=== PATIENT | female | born 1945 | race Hispanic/Latino ===

== ENCOUNTER → 2017-12-03 | Outpatient (CLI) | payer OTHER | END | disposition home or self-care (01) | LOC: RAH 11:16 | PROVIDERS: ATTEND Family Medicine | DX: Z12.31 Encounter for screening mammogram for malignant neoplasm of breast (principal) | CPT/HCPCS: 77067 ==

== ENCOUNTER → 2018-05-14 | Outpatient (CLI) | payer OTHER | END | disposition home or self-care (01) | LOC: RAH 09:45 | PROVIDERS: ATTEND Family Medicine | DX: R92.8 Other abnormal and inconclusive findings on diagnostic imaging of breast (principal) | CPT/HCPCS: 77065 ==

== ENCOUNTER → 2018-12-04 | Outpatient (CLI) | payer OTHER | END | disposition home or self-care (01) | LOC: RAH 09:58 | PROVIDERS: ATTEND Family Medicine | DX: Z12.31 Encounter for screening mammogram for malignant neoplasm of breast (principal) | CPT/HCPCS: 77067 ==

== ENCOUNTER → 2020-09-04 | Outpatient (CLI) | payer OTHER | END | disposition home or self-care (01) | LOC: RAH 14:56 | PROVIDERS: ATTEND Family Medicine | DX: Z12.31 Encounter for screening mammogram for malignant neoplasm of breast (principal) | CPT/HCPCS: 77067 ==

== ENCOUNTER → 2022-01-07 | Outpatient (CLI) | payer OTHER | END | disposition home or self-care (01) | LOC: RAH 14:55 | PROVIDERS: ATTEND Physician Assistant Medical | DX: Z12.31 Encounter for screening mammogram for malignant neoplasm of breast (principal) | CPT/HCPCS: 77067 ==

== ENCOUNTER → 2023-05-29 | Outpatient (CLI) | payer OTHER | END | disposition home or self-care (01) | LOC: RAH 14:03 | PROVIDERS: ATTEND Physician Assistant Medical | DX: Z12.31 Encounter for screening mammogram for malignant neoplasm of breast (principal) | CPT/HCPCS: 77067 ==

== ENCOUNTER 2023-12-28 09:04 | Emergency (ER) | payer OTHER ==
[~2023-12-28] VITALS: Ht 160 cm; Wt 84.8 kg
[2023-12-28] MEDS ORDERED: LORA10TA7 PO (09:15)
[2023-12-28] MEDS ORDERED: CEPH500B PO (09:15)
[2023-12-28 09:19] VITALS: BP 132/56; PULSE 78; RESP 18; O2SAT 95
== END 2023-12-28 09:08 | disposition home or self-care (01) ==
LOC: EDH 09:04
DX: S80.862A Insect bite (nonvenomous), left lower leg, initial encounter (principal); E11.9 Type 2 diabetes mellitus without complications; E78.00 Pure hypercholesterolemia, unspecified; I10 Essential (primary) hypertension; Z90.49 Acquired absence of other specified parts of digestive tract; Z90.710 Acquired absence of both cervix and uterus; W57.XXXA Bitten or stung by nonvenomous insect and other nonvenomous arthropods, initial encounter

== ENCOUNTER 2024-06-29 17:02 | Emergency (ER) | payer OTHER ==
[~2024-06-29] VITALS: Ht 160 cm; Wt 85.8 kg
[~2024-06-29 17:02] MED LIST: CEPH500B PO; LORA10TA7 PO
[2024-06-29] MEDS: HYDROcodone/APAP 5/325 1 TAB TABLET PO STA (17:57)
--- NOTE | 2024-06-29 18:24 | HMCIMG ---
Exam Type: CT HEAD/BRAIN W/O CONTRAST Clinical Information: TRAUMA Comparison: None CT Dose Index (CTDI): 57.33 mGy Dose Length Product (DLP): 956.79 total mGy-cm Findings: The examination is unremarkable. Paz-white matter junction is preserved. No intra or extra axial lesions or fluid collections are seen. Specifically, paz and white matter are normal in signal characteristics with normal caliber of ventricles and periventricular cisterns with no evidence of intra or or extra-axial hemorrhage, lacunar infarct, or major territorial infarct, mass, or other abnormality. There are no infarcts. There are no hemorrhages. Periventricular white matter locations are preserved. The orbital contents and structures of the posterior fossa are intact. Impression: Normal CT of the head. This study was performed using dose reduction techniques to include automated exposure control and/or adjustment of the mA and/or kV according to patient size.
--- NOTE | 2024-06-29 18:26 | HMCIMG ---
Exam Type: CT cervical spine without contrast Clinical Information: TRAUMA Comparison: None Technique: Spiral axial images were performed from the base of the skull down to the thoracic vertebral bodies. Both sagittal and coronal reconstructions were performed. CT Dose Index (CTDI): 12.85 mGy Dose Length Product (DLP): 282.6 total Findings: There is normal alignment of the vertebral bodies. There are no fractures. No facet hypertrophy. The prevertebral soft tissues are normal. Incidentally, right thyroid nodule noted. IMPRESSION: NORMAL CERVICAL SPINE CT. This study was performed using dose reduction techniques to include automated exposure control and/or adjustment of the mA and/or kV according to patient size.
--- NOTE | 2024-06-29 18:29 | HMCIMG ---
Exam Type: CLAVICLE RIGHT Clinical Information: TRAUMA Comparison: None Findings: The bone examination is unremarkable. No fractures or dislocations are seen. No radiopaque foreign bodies are noted. Soft tissues are preserved. IMPRESSION: Normal examination.
--- NOTE | 2024-06-29 18:29 | HMCIMG ---
Exam Type: SHOULDER COMP 2+VWS RT Clinical Information: TRAUMA Comparison: None FINDINGS: The acromioclavicular joint shows hypertrophy, which may impinge upon the rotator cuff tendon. The glenohumeral joint is preserved. Visualized portions of the humerus, the scapula, and the clavicle as well as the upper ribcage are unremarkable. No pulmonary pathology is noted in the visualized portions of the upper lobe. The soft tissues are preserved. There are no other gross abnormalities. IMPRESSION: Degenerative changes of the acromioclavicular joint with hypertrophy.
--- NOTE | 2024-06-29 18:30 | HMCIMG ---
Exam Type: CHEST 1VW Clinical Information: TRAUMA Comparison: None Findings: The lungs are clear of infiltrates. The heart is normal in size. The bony and soft tissue structures of the chest are unremarkable. Impression: Clear lungs.
[2024-06-29 18:52] VITALS: BP 156/62; PULSE 62; RESP 16; TEMP 98.3; O2SAT 98
--- NOTE | 2024-06-29 19:07 | ERN ---
ED Note History of Present Illness Stated Complaint: FALL, RIGHT SHOULDER AND COLLAR BONE PAIN Chief Complaint: Mechanical Fall Time Seen by MD: 17:19 Time Seen by Midlevel: 17:22 Dictation: 79-YEAR-OLD FEMALE MEDICAL HISTORY OF HYPERTENSION DIABETES, CHOLESTEROL. PATIENT STATES HER SHE WAS STUCK ON THE FLOOR, FELL TO THE LEFT BUT HIT HER HEAD LEVEL NOW ON THE FLOOR. PATIENT STATES SHE LOST CONSCIOUSNESS FOR A FEW SECONDS, COMPLAIN OF RIGHT SHOULDER/CLAVICLE PAIN AND HEADACHE. DENIES HAVING ANY NAUSEA OR VOMITING AT THIS TIME. Allergies: Coded Allergies: No Known Drug Allergies (Unverified Allergy, Unknown, 12/28/23) Home Meds Active Scripts Loratadine (Loratadine) 10 Mg Tablet, 10 MG PO DAILY for 30 Days, #30 TAB Prov:ELIZABETH SALMON MD 12/28/23 Cephalexin Monohydrate (Keflex) 500 Mg Cap, 500 MG PO QID for 7 Days, #28 CAP Prov:ELIZABETH SALMON MD 12/28/23 Past Medical History Past Medical History: Diabetes-Type II, High Cholesterol, Hypertension Surgical History: Appendectomy, Hysterectomy Review of System Dictation Constitutional: Negative for fever,chills, and weight loss Eyes: Negative for injury, pain,redness, and discharge ENT: Negative for injury,pain or swelling Cardiovascular: Negative for chest pain, palpitations, and edema Respiratory: Negative for shortness of breath, cough, and wheezing, Abdomen/GI: Negative for abdominal pain, nausea, vomiting, diarrhea, and constipation Back: Negative for injury and pain : Negative for injury, bleeding and discharge MS/Extremity: Negative for injury and deformity, right shoulder/clavicle pain Skin: Negative for rash, and discoloration Neuro: Negative for headache, weakness, numbness, tingling, and seizure Psych: Negative for suicide ideation, homicidal ideation, and hallucinations Review of Systems: was completed Initial Vital Sign VS Vital Signs Date Time Temp Pulse Resp B/P (MAP) Pulse Ox O2 Delivery O2 Flow Rate FiO2 06/29/24 17:03 98.4 69 20 168/69 99 0 06/29/24 17:33 Room Air* 21 Physical Exam Dictation General: awake, alert, NAD Head/Face: Normocephalic, atraumatic Eyes: PERRL, EOMI, vision at baseline ENT: oral cavity clear, TMs clear, no signs of infection Neck: Trachea midline, supple, no nuchal rigidity Cardiovascular: RRR, normal S1/S2, No MRGs, no JVD Respiratory: CTAB, no respiratory distress, No rales or wheezes Abdomen: Soft, non-tender, non-distended, normal bowel sounds, no guarding or rebound. Skin: Warm, dry, normal turgor, no rash MS/Extremity: Pulses equal, no cyanosis, neurovascular intact, FROM, pain on palpation to the right clavicle area Neuro: COAx4, GCS 15, strength 5/5, CN 2-12 intact, normal cerebellar exam, normal gait, Psych: Normal behavior, mood, and affect normal Results (Laboratory/Radiology) X-RAY Comment: [place] [address] [address] IMAGING REPORT Signed PATIENT: JACKIE HUSTON MR#: [id number] : 1945 SEX: F AGE: 79 LOCATION: [facility] ORDER 40 STATUS: [facility] REPORT#: [id number] SERVICE 38 REASON: TRAUMA ORDERING PHYSICIAN: JEREMIE WILLAMS NP PROCEDURE: SHOL 2V RT - SHOULDER COMP 2+VWS RT Exam Type: SHOULDER COMP 2+VWS RT Clinical Information: TRAUMA Comparison: None FINDINGS: The acromioclavicular joint shows hypertrophy, which may impinge upon the rotator cuff tendon. The glenohumeral joint is preserved. Visualized portions of the humerus, the scapula, and the clavicle as well as the upper ribcage are unremarkable. No pulmonary pathology is noted in the visualized portions of the upper lobe. The soft tissues are preserved. There are no other gross abnormalities. IMPRESSION: Degenerative changes of the acromioclavicular joint with hypertrophy. DICTATED BY: MARYAM DE JESUS MD DATE: 06/29/241825 ELECTRONICALLY SIGNED BY: MARYAM DE JESUS MD DATE: 06/29/241828 [place] [address] [address] IMAGING REPORT Signed PATIENT: JACKIE HUSTON MR#: [id number] : 1945 SEX: F AGE: 79 LOCATION: [facility] ORDER 40 STATUS: [facility] REPORT#: [id number] SERVICE 38 REASON: TRAUMA ORDERING PHYSICIAN: JEREMIE WILLAMS NP PROCEDURE: HEAD WO - CT HEAD/BRAIN W/O CONTRAST Exam Type: CT HEAD/BRAIN W/O CONTRAST Clinical Information: TRAUMA Comparison: None CT Dose Index (CTDI): 57.33 mGy Dose Length Product (DLP): 956.79 total mGy-cm Findings: The examination is unremarkable. Paz-white matter junction is preserved. No intra or extra axial lesions or fluid collections are seen. Specifically, paz and white matter are normal in signal characteristics with normal caliber of ventricles and periventricular cisterns with no evidence of intra or or extra-axial hemorrhage, lacunar infarct, or major territorial infarct, mass, or other abnormality. There are no infarcts. There are no hemorrhages. Periventricular white matter locations are preserved. The orbital contents and structures of the posterior fossa are intact. Impression: Normal CT of the head. This study was performed using dose reduction techniques to include automated exposure control and/or adjustment of the mA and/or kV according to patient size. DICTATED BY: MARYAM DE JESUS MD DATE: 06/29/241819 ELECTRONICALLY SIGNED BY: MARYAM DE JESUS MD DATE: 06/29/241823 [address] [address] IMAGING REPORT Signed PATIENT: JACKIE HUSTON MR#: [id number] : 1945 SEX: F AGE: 79 LOCATION: [facility] ORDER 40 STATUS: [facility] REPORT#: [id number] SERVICE 38 REASON: TRAUMA ORDERING PHYSICIAN: JEREMIE WILLAMS NP PROCEDURE: CLAVI RT - CLAVICLE RIGHT Exam Type: CLAVICLE RIGHT Clinical Information: TRAUMA Comparison: None Findings: The bone examination is unremarkable. No fractures or dislocations are seen. No radiopaque foreign bodies are noted. Soft tissues are preserved. IMPRESSION: Normal examination. DICTATED BY: MARYAM DE JESUS MD DATE: 06/29/241826 ELECTRONICALLY SIGNED BY: MARYAM DE JESUS MD DATE: 06/29/241828 [place] [address] [place] [id number] IMAGING REPORT Signed PATIENT: JACKIE HUSTON MR#: [id number] : 1945 SEX: F AGE: 79 LOCATION: [facility] ORDER 40 STATUS: [facility] REPORT#: [id number] SERVICE 38 REASON: TRAUMA ORDERING PHYSICIAN: JEREMIE WILLAMS NP PROCEDURE: CXR1VW - CHEST 1VW Exam Type: CHEST 1VW Clinical Information: TRAUMA Comparison: None Findings: The lungs are clear of infiltrates. The heart is normal in size. The bony and soft tissue structures of the chest are unremarkable. Impression: Clear lungs. DICTATED BY: MARYAM DE JESUS MD DATE: 06/29/241826 ELECTRONICALLY SIGNED BY: MARYAM DE JESUS MD DATE: 06/29/241829 [place] [address] [id number] IMAGING REPORT Signed PATIENT: JACKIE HUSTON MR#: [id number] : 1945 SEX: F AGE: 79 LOCATION: ED ORDER 40 STATUS: [facility] REPORT#: [id number] SERVICE 38 REASON: TRAUMA ORDERING PHYSICIAN: JEREMIE WILLAMS NP PROCEDURE: C SPIN WO - CT CERVICAL SPINE W/O CONTRAST Exam Type: CT cervical spine without contrast Clinical Information: TRAUMA Comparison: None Technique: Spiral axial images were performed from the base of the skull down to the thoracic vertebral bodies. Both sagittal and coronal reconstructions were performed. CT Dose Index (CTDI): 12.85 mGy Dose Length Product (DLP): 282.6 total Findings: There is normal alignment of the vertebral bodies. There are no fractures. No facet hypertrophy. The prevertebral soft tissues are normal. Incidentally, right thyroid nodule noted. IMPRESSION: NORMAL CERVICAL SPINE CT. This study was performed using dose reduction techniques to include automated exposure control and/or adjustment of the mA and/or kV according to patient size. DICTATED BY: MARYAM DE JESUS MD DATE: 06/29/241820 ELECTRONICALLY SIGNED BY: MARYAM DE JESUS MD DATE: 06/29/241825 ED Course ED Course Orders Procedure Category Date Status Time Ct Head/Brain W/O CT 06/29/24 Resulted Contrast 17:39 Ct Cervical Spine W/O CT 06/29/24 Resulted Contrast 17:39 Chest 1vw RAD 06/29/24 Resulted 17:39 Shoulder Comp 2+Vws Rt RAD 06/29/24 Resulted 17:39 Clavicle Right RAD 06/29/24 Resulted 17:39 Hydrocodone/Apap PHA 06/29/24 Complete 5/325 ([place] 5/325mg) 17:39 Current Medications Medications (Trade) Dose Ordered Sig/Henrry Route PRN Reason Start Time Stop Time Status Last Admin Dose Admin Acetaminophen/ Hydrocodone Bitart (NORco 5/325MG) 1 tab ONCE STAT PO 06/29/24 17:39 06/29/24 17:41 DC 06/29/24 17:57 Vital Signs Date Time Temp Pulse Resp B/P (MAP) Pulse Ox O2 Delivery O2 Flow Rate FiO2 06/29/24 18:52 98.2 62 16 156/62 98 Room Air* 0 21 06/29/24 17:33 98.4 65 16 165/64 98 Room Air* 0 21 06/29/24 17:03 98.4 69 20 168/69 99 0 Medical Decision Making MDM MDM: Differential diagnosis: Fall, contusion, shoulder pain Rationale: Tests considered and ordered secondary to shared decision making include: Previous outside records reviewed: Old ER visits. Risk of complication and/or morbidity or mortality of patient management: None Medications-Per medication reconciliation Need for hospitalization: Patient does not meet criteria for hospitalization. Need for emergency major/minor surgery: No There are no social concerns with this patient. Prescription drug management Prescriptions will include symptomatic care Patient's prior external medical records from other ER visits were reviewed by me as indicated. Prior testing and results from previous visits were reviewed. Prior tests were taken into account with medical decision making and resource utilization, independent historian/historians were used to obtain complete medical history. I independently interpreted the test that were performed, results were reviewed by me and considered findings on radiology if ordered. Medical management and examination interpretation discussions were had by me with other qualified healthcare professionals as indicated for the patient's care. DX & DISP Disposition: Discharge Departure Impression: Primary Impression: Fall Additional Impression: Shoulder contusion Condition: Stable Additional Instructions: All your x-rays are normal, you can take Tylenol or Motrin [id number] for pain management and use a sling as needed. Follow up with your primary doctor in 1-2 days. Referrals: MITALI HOOPER (PCP) Time of Disposition: 19:06 I have reviewed the case, and I agree with, Diagnosis and Plan JEREMIE WILLAMS NP Jun 29, 2024 19:07 LEMUEL MICHEL MD Jun 30, 2024 13:08
== END 2024-06-29 19:20 | disposition home or self-care (01) ==
LOC: EDH 17:02
DX: S40.011A Contusion of right shoulder, initial encounter (principal); E11.9 Type 2 diabetes mellitus without complications; E78.00 Pure hypercholesterolemia, unspecified; I10 Essential (primary) hypertension; R51.9 Headache, unspecified; R55 Syncope and collapse; Z90.49 Acquired absence of other specified parts of digestive tract; Z90.710 Acquired absence of both cervix and uterus; X58.XXXA Exposure to other specified factors, initial encounter; Y93.89 Activity, other specified; Y92.89 Other specified places as the place of occurrence of the external cause; Y99.8 Other external cause status
CPT/HCPCS: 70450; 71045; 72125; 73000; 73030; 99284